=== PATIENT | female | born 1975 | race Hispanic/Latino ===

== ENCOUNTER 2016-09-19 11:09 | Emergency (ER) | payer OTHER ==
[~2016-09-19] VITALS: Ht 162.6 cm; Wt 92.8 kg
[~2016-09-19 11:09] MED LIST: ASPIR-LOW81 MG PO; ATARAX,VISTARIL25 MG PO; EPIPEN ADU0.3 MG/0.3 IM; OMEPRAZOLE40 M1 PO; PRAVASTATIN SOD40 MG PO; PREDNISONE20 MG PO; TENORMIN50 MG PO; ZANTAC300 MG PO
[2016-09-19 12:03] LABS: HEMATOCRIT 38.3 % (36.0-46.0); MCH 28.8 PG (29.0-34.0); MCHC 34.5 G/DL (30.0-36.0); MCV 83.6 FL (83-99); MEAN PLAT.VOLUME 9.6 uM^3 (9.5-12.4); PLATELET COUNT 306 K/uL (156-360); RBC DIS.WIDTH-CV 13.6 % (11.8-14.6); RBC DIS.WIDTH-SD 40.9 % (39-53); RED BLOOD COUNT 4.58 M/uL (3.80-5.20); WHITE BLOOD COUNT 6.4 K/uL (4.1-10.2)
[2016-09-19 12:13] LABS: CHLORIDE 107 mEq/L (99-109); POTASSIUM 3.8 mEq/L (3.7-5.4); SODIUM 138 mEq/L (136-147)
[2016-09-19 12:15] LABS: GLUCOSE 94 mg/dL (70-99)
[2016-09-19 12:16] LABS: ANION GAP 9 MEQ/L (2-14)
[2016-09-19 12:19] LABS: GFR ESTIMATE (CALCULATED) > 59 mL/min/
[2016-09-19 12:20] LABS: UREA NITROGEN (BUN) 13 mg/dL (9-23)
[2016-09-19 12:26] LABS: TROP-I INTERPRETATION NEGATIVE; TROPONIN-I < 0.01 ng/mL (0.0-0.30)
[2016-09-19] MEDS ORDERED: TOPAMAX25 MG PO (13:43)
[2016-09-19 15:12] VITALS: BP 120/80
== END 2016-09-19 15:12 | disposition home or self-care (01) ==
LOC: RME 11:09 → EME 11:09 → RME 15:12
DX: R07.9 Chest pain, unspecified (principal); H53.8 Other visual disturbances; G43.909 Migraine, unspecified, not intractable, without status migrainosus
CPT/HCPCS: 71020; 80048; 84484; 85027; 93005; 99281; 99284